=== PATIENT | male | born 1995 | race Hispanic/Latino ===

== ENCOUNTER 2018-07-10 08:46 | Emergency (ER) | payer SELFPAY ==
[2018-07-10 08:54] VITALS: BP 171/88
[2018-07-10] MEDS ORDERED: NORCO 10/325 PO ONE (09:03)
[2018-07-10] MEDS ORDERED: ANCEF IM ONE (09:03)
[2018-07-10] MEDS ORDERED: TYLENOL PO ONE (09:05)
--- NOTE | 2018-07-10 09:08 | Emergency Department Report ---
Abscess Boil HPI - HPI Chief Complaint: Extremity Injury, Upper Stated Complaint: R ARM SWOLLEN Time Seen by Provider: 07/10/18 08:58 Duration: 5 Days Location: Upper Extremity (r) History: Yes Pain, Yes Purulent Drainage, Yes Insect Bite, No Fever, No Numbness, No Foreign Body, No Previous History HPI: Patient is a pleasant 23-year-old who comes to the ER after what he thinks was a bite on his right arm turned into an abscess. The area is draining. There is surrounding cellulitis. Past medical history none. Home medications none. tdap is utd Home Medications: Previous Rx's Medication Instructions Recorded Last Taken Type cephALEXin [Keflex] 500 mg PO Q12HR #20 cap 07/10/18 Unknown Rx traMADol [Ultram] 50 mg PO Q6HR PRN #10 tablet 07/10/18 Unknown Rx Allergies/Adverse Reactions: Allergies Allergy/AdvReac Type Severity Reaction Status Date / Time No Known Allergies Allergy Unverified 07/10/18 08:47 ED Review of Systems ROS: Stated complaint: R ARM SWOLLEN Other details as noted in HPI Comment: All other systems reviewed and negative Constitutional: denies: chills Eyes: denies: eye pain ENT: denies: ear pain Respiratory: denies: cough Cardiovascular: denies: palpitations Gastrointestinal: denies: nausea Genitourinary: denies: urgency Musculoskeletal: denies: back pain Skin: as per HPI, lesions Neurological: denies: headache Psychiatric: denies: anxiety Hematological/Lymphatic: denies: easy bleeding ED Past Medical Hx - Past Medical History Previous Medical History?: No - Surgical History Past Surgical History?: No - Family History Family history: no significant - Social History Smoking Status: Current Every Day Smoker Substance Use Type: None - Medications Home Medications: Home Medications Medication Instructions Recorded Confirmed Last Taken Type cephALEXin [Keflex] 500 mg PO Q12HR #20 cap 07/10/18 Unknown Rx traMADol [Ultram] 50 mg PO Q6HR PRN #10 tablet 07/10/18 Unknown Rx ED Abscess Boil Physical Exam - Exam General: Vital signs noted. No distress. Alert and acting appropriately. Size: 3 cm Exam: Yes Tenderness, Yes Fluctuance, Yes Surrounding Cellulites/Erythema, Yes Normal Neurologic Exam, Yes Normal Circulation, No Lymphangitis, No Crepitation, No Heart Murmur Exam: open and draining abscess ED Course Vital Signs 07/10/18 07/10/18 08:52 09:01 Temperature 97.7 F Pulse Rate 102 H Respiratory 18 15 Rate Blood Pressure 171/88 O2 Sat by Pulse 99 Oximetry Critical care attestation.: If time is entered above; I have spent that time in minutes in the direct care of this critically ill patient, excluding procedure time. ED Medical Decision Making - Medical Decision Making abscess is open medicated in ER will dc on anbx with wound care dc home with dc poc and follow up discussed with pt this being over a joint and need to see pcp to ensure healing. Vital Signs 07/10/18 07/10/18 08:52 09:01 Temperature 97.7 F Pulse Rate 102 H Respiratory 18 15 Rate Blood Pressure 171/88 O2 Sat by Pulse 99 Oximetry HR on provider exam 90 ED Disposition Clinical Impression: Abscess Disposition: DC-01 TO HOME OR SELFCARE Is pt being admited?: No Does the pt Need Aspirin: No Condition: Stable Instructions: Abscess (ED) Additional Instructions: soak arm in epsom salts and warm water three times per day for 20 minutes med as ordered today until gone do not stop early call pcp below and make appointment for follow up next week to be sure it is getting better elevate arm sling for comfort motrin or tylenol for mild pain twice per day remove the dressing wash with soap and water apply over the counter neosporin and re wrap in clean guaze do this until you are seen by pcp next week YOU MUST KEEP THIS CLEAN Prescriptions: cephALEXin [Keflex] 500 mg PO Q12HR #20 cap traMADol [Ultram] 50 mg PO Q6HR PRN #10 tablet PRN Reason: Pain Referrals: [facility] [Outside] - 3-5 Days Time of Disposition: 09:06
[2018-07-10] MEDS ORDERED: THERMAZENE 50 GRAM TP ONE (09:30)
[2018-07-10] MEDS ORDERED: DELTASONE PO NR (10:00)
== END 2018-07-10 10:46 | disposition home or self-care (01) ==
LOC: ED 08:46
DX: L02.413 Cutaneous abscess of right upper limb (principal); F17.200 Nicotine dependence, unspecified, uncomplicated
CPT/HCPCS: 96372; 99283; J0690; J7512

== ENCOUNTER 2018-12-11 13:59 | Emergency (ER) | payer SELFPAY ==
[2018-12-11 14:39] VITALS: BP 157/89
--- NOTE | 2018-12-11 14:40 | Emergency Department Report ---
- General Chief complaint: Skin Rash Stated complaint: POISON OAK Time Seen by Provider: 12/11/18 14:36 Source: patient Mode of arrival: Ambulatory Limitations: No Limitations - History of Present Illness Initial comments: pt is a 23 yo male who presents with a rash to the BUE and to the left ear that began two days ago. pt was outside cutting trees. he has assocaited itching. pt states he has poison oak or poison dawna. no N/V/D, fever, or any other symptoms. has had it in the past. no PMHx. no allergies to meds - Related Data Previous Rx's Medication Instructions Recorded Last Taken Type cephALEXin [Keflex] 500 mg PO Q12HR #20 cap 07/10/18 Unknown Rx traMADol [Ultram] 50 mg PO Q6HR PRN #10 tablet 07/10/18 Unknown Rx Triamcinolone 0.5% [Kenalog 0.5% 1 applic TP TID #1 tube 12/11/18 Unknown Rx CREAM] diphenhydrAMINE [Benadryl CAP] 25 mg PO Q6HR PRN #20 capsule 12/11/18 Unknown Rx predniSONE [Deltasone] 40 mg PO QDAY 7 Days #14 tab 12/11/18 Unknown Rx Allergies Allergy/AdvReac Type Severity Reaction Status Date / Time No Known Allergies Allergy Unverified 07/10/18 08:47 Abscess Boil HPI - HPI Chief Complaint: Skin Rash Stated Complaint: POISON OAK Time Seen by Provider: 12/11/18 14:36 Home Medications: Previous Rx's Medication Instructions Recorded Last Taken Type cephALEXin [Keflex] 500 mg PO Q12HR #20 cap 07/10/18 Unknown Rx traMADol [Ultram] 50 mg PO Q6HR PRN #10 tablet 07/10/18 Unknown Rx Triamcinolone 0.5% [Kenalog 0.5% 1 applic TP TID #1 tube 12/11/18 Unknown Rx CREAM] diphenhydrAMINE [Benadryl CAP] 25 mg PO Q6HR PRN #20 capsule 12/11/18 Unknown Rx predniSONE [Deltasone] 40 mg PO QDAY 7 Days #14 tab 12/11/18 Unknown Rx Allergies/Adverse Reactions: Allergies Allergy/AdvReac Type Severity Reaction Status Date / Time No Known Allergies Allergy Unverified 07/10/18 08:47 ED Review of Systems ROS: Stated complaint: POISON OAK Other details as noted in HPI Comment: All other systems reviewed and negative ED Past Medical Hx - Social History Smoking Status: Current Every Day Smoker Substance Use Type: None - Medications Home Medications: Home Medications Medication Instructions Recorded Confirmed Last Taken Type cephALEXin [Keflex] 500 mg PO Q12HR #20 cap 07/10/18 Unknown Rx traMADol [Ultram] 50 mg PO Q6HR PRN #10 tablet 07/10/18 Unknown Rx Triamcinolone 0.5% [Kenalog 0.5% 1 applic TP TID #1 tube 12/11/18 Unknown Rx CREAM] diphenhydrAMINE [Benadryl CAP] 25 mg PO Q6HR PRN #20 capsule 12/11/18 Unknown Rx predniSONE [Deltasone] 40 mg PO QDAY 7 Days #14 tab 12/11/18 Unknown Rx ED Physical Exam - General Limitations: No Limitations General appearance: alert, in no apparent distress - Head Head exam: Present: atraumatic, normocephalic - Eye Eye exam: Present: normal appearance - ENT ENT exam: Present: normal orophraynx, mucous membranes moist - Neurological Exam Neurological exam: Present: alert, oriented X3 - Psychiatric Psychiatric exam: Present: normal affect, normal mood - Skin Skin exam: Present: warm, dry, other (small erythematous papules/vesicles in a linear distribution, no skin denuding, no active drainage, no blistering, no necrosis) ED Course Vital Signs 12/11/18 14:37 Temperature 98.3 F Pulse Rate 112 H Respiratory 18 Rate Blood Pressure 157/89 O2 Sat by Pulse 100 Oximetry ED Medical Decision Making - Medical Decision Making pt is a 23 yo male who presents with a rash to the BUE and to the left ear that began two days ago. pt was outside cutting trees. he has assocaited itching. pt states he has poison oak or poison dawna. no N/V/D, fever, or any other symptoms. has had it in the past. no PMHx. no allergies to meds. on exam: small er ythematous papules/vesicles in a linear distribution, no skin denuding, no active drainage, no blistering, no necrosis. examination appears consistent with poison dawna dermatitis. given prescription for benadryl, hydrocortisone, and benadryl. advised to not use ointment on the face. advised pt to please use medication as prescribed. may also continue to use calamine lotion. avoid scratching. wash all sheets/clothes. follow up with a primary care doctor in the next 2-3 days. return to the emergency room for any new or worsening symptoms. - Differential Diagnosis contact derm, irritant derm, poison dawna/oak, allergic rxn Critical care attestation.: If time is entered above; I have spent that time in minutes in the direct care of this critically ill patient, excluding procedure time. ED Disposition Clinical Impression: Contact dermatitis Qualifiers: Contact dermatitis type: allergic Contact dermatitis trigger: non-food plants Qualified Code(s): L23.7 - Allergic contact dermatitis due to plants, except food Disposition: DC-01 TO HOME OR SELFCARE Is pt being admited?: No Does the pt Need Aspirin: No Condition: Stable Instructions: Poison Dawna (ED) Additional Instructions: please use medication as prescribed. may also continue to use calamine lotion. avoid scratching. wash all sheets/clothes. follow up with a primary care doctor in the next 2-3 days. return to the emergency room for any new or worsening symptoms. Prescriptions: diphenhydrAMINE [Benadryl CAP] 25 mg PO Q6HR PRN #20 capsule PRN Reason: Itching predniSONE [Deltasone] 40 mg PO QDAY 7 Days #14 tab Triamcinolone 0.5% [Kenalog 0.5% CREAM] 1 applic TP TID #1 tube Referrals: [facility] [Provider Group] - 2-3 Days [facility] [Outside] - 2-3 Days [facility] [Outside] - 2-3 Days [facility] [Primary Care Provider] - 3-5 Days Time of Disposition: 14:50 Print Language: PARAGUAYAN
== END 2018-12-11 14:57 | disposition home or self-care (01) ==
LOC: ED 13:59
DX: L25.9 Unspecified contact dermatitis, unspecified cause (principal); F17.200 Nicotine dependence, unspecified, uncomplicated; Z79.899 Other long term (current) drug therapy